=== PATIENT | female | born 1990 | race Caucasian/White ===

== ENCOUNTER 2016-08-30 10:03 | Emergency (ER) | payer OTHER ==
[~2016-08-30 10:03] MED LIST: ADVAIR INH; ALBUTEROL 0.5ML INH; ALBUTEROL17 GM; ALBUTEROL17 GM INH; AMOXIL500 M1 PO; BACTRIM DS TABL1 TA1; BENZONATATE PO; BROMFED PO; DOXYCYCLINE PO; E-MYCIN250 MG PO; IMPLANON68 MG/IMPL; LEXAPRO PO; MEDROL PO; MEDROL4 MG/DOSE- PO; MOTRIN600 MG; NO MEDICATIONS; PHENERGAN DM1 ML PO; PREDNISONE PO; PRENATAL MULTIV1 TA1; ROBITUSSIN A-C-S1 ML PO; ROBITUSSIN-PE240 ML PO; SUDAFED30 M1; ZITHROMAX PO; ZOLOFT100 MG PO; ZYRTEC PO
== END 2016-08-30 10:25 | disposition home or self-care (01) ==
LOC: SED 10:03
DX: J06.9 Acute upper respiratory infection, unspecified (principal); J45.909 Unspecified asthma, uncomplicated
CPT/HCPCS: 99283